=== PATIENT | male | born 1975 | race African-American/Black ===

== ENCOUNTER 2018-03-02 10:45 | Emergency (ER) | payer SELFPAY ==
[~2018-03-02] VITALS: Ht 167.6 cm; Wt 63.3 kg
[~2018-03-02 10:45] MED LIST: OMEP10SU2
[2018-03-02] MEDS ORDERED: KETOROLAC 60MG/2ML VIAL IM ONE (13:00)
[2018-03-02 14:24] VITALS: BP 120/60
== END 2018-03-02 14:30 | disposition home or self-care (01) ==
LOC: ER 10:45
DX: L03.115 Cellulitis of right lower limb (principal); F12.10 Cannabis abuse, uncomplicated; F17.200 Nicotine dependence, unspecified, uncomplicated; Z79.899 Other long term (current) drug therapy
CPT/HCPCS: 73630; 96372; 99284; J1885